=== PATIENT | male | born 1930 | race Caucasian/White ===

== ENCOUNTER 2017-07-15 02:50 | Observation (INO) | payer OTHER ==
[2017-07-15] MEDS ORDERED: NS 500 ML IV ONE ×2 (02:55→05:44)
--- NOTE | 2017-07-15 02:57 | EDPHY ---
H & P HPI/ROS: HPI CHIEF COMPLAINT: Fall, unwitnessed, in bathroom, syncope HISTORY OF PRESENT ILLNESS: This patient 86-year-old male who sustained a fall in his bathroom. This was unwitnessed. EMS reports that they think he was having a nose bleed went to the bathroom to stop his nose bleed and fell. Unwitnessed. EMS reports the daughter then helped him get up and he had 20 seconds pause of unresponsiveness staring off into space the daughter reports to EMS that she thought he was dying. 911 was called. EMS evaluated the patient he has skin tears to both elbows. The patient has no complaints. Past Medical History: Unknown at this time Past Surgical History: Unknown upon arrival Social History: Unknown Family History: Unknown ROS REVIEW OF SYSTEMS: A comprehensive 10 point review of systems is otherwise negative aside from elements mentioned in the history of present illness. Exam Constitutional triage nursing summary reviewed, vital signs reviewed, awake/ alert. Eyes normal conjunctivae and sclera, EOMI, PERRLA. HENT normal inspection, atraumatic, moist mucus membranes, dry blood bilateral nares, neck supple/ no meningismus, no raccoon eyes. Respiratory clear to auscultation bilaterally, normal breath sounds, no respiratory distress, no wheezing. Cardiovascular rate normal, regular rhythm, no murmur, no edema, distal pulses normal. Gastrointestinal soft, non-tender, no rebound, no guarding, normal bowel sounds, no distension, no pulsatile mass. Genitourinary no CVA tenderness. Musculoskeletal no midline vertebral tenderness, full range of motion, no calf swelling, no tenderness of extremities, no meningismus, good pulses, neurovascularly intact. Skin pink, warm, & dry, no rash, skin atraumatic. Neurologic awake, alert and oriented x 3, AAOx3, moves all 4 extremities equally, motor intact, sensory intact, CN II-XII intact, normal cerebellar, normal vision, normal speech. Psychiatric normal mood/affect. Heme/Lymph/Immune no lymphadenopathy. 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 Re-evaluation: 0316AM: Daughter arrived. She tells me that she was called by his as he was sleeping in his recliner and developed a nose bleed. He got up from his recliner to go to the bathroom and fell. Unclear his syncopal episode or not. However the daughter arrived to the house in some mild assisted found him on the ground assisted him into a chair he was sitting in the chair for approximately 5 minutes. And at one point he became unresponsive diaphoretic cool and clammy with his mouth hanging open staring off into space not moving anything. This lasted approximately a minute. 0331 CT scan of the head and neck without IV contrast for trauma The results of the study are negative for acute traumatic injury The study was read by Dr. Raymond Waters. I viewed the images myself on the PACS system. EKG interpretation by me on record in [facility] system. Impression time of EKG 3:43 a.m., sinus rhythm rate of 66 right bundle-branch block present. Otherwise unremarkable EKG. SD interval noted 216. ED x-ray chest two view: Pulmonary nodules present. Emphysematous changes. Otherwise no traumatic injury visualized. 0406AM: Given this patient had a syncopal episode own and unresponsive episode and his initial blood pressure was 70 systolic when he arrived. Feel that it is completely reasonable to admit him for observation today. IV hydration. Distally his acute kidney injury. Unknown baseline creatinine. No significant traumatic injuries on exam. Skin tears. Present. Source: Patient, EMS Constitutional: Initial Vital Signs Temperature (C) 36.4 C 07/15/17 03:04 Heart Rate 77 07/15/17 03:04 Respiratory Rate 18 07/15/17 03:04 Blood Pressure 73/58 L 07/15/17 03:04 O2 Sat (%) 93 07/15/17 03:04 O2 Delivery Mode Room Air Allergies/Adverse Reactions: No Known Allergies Allergy (Unverified 07/15/17 03:47) Home Medications: Medication Instructions Recorded Beclomethasone Qvar 80 [Qvar 80 2 puffs IH DAILY 07/15/17 (*)] Multivitamins [Multivitamin (*)] 1 tab PO DAILY 07/15/17 Oxymorphone HCl 5 mg PO BID@06,12 07/15/17 Oxymorphone HCl 10 mg PO DAILY@18 07/15/17 Medical Decision Making - Data Points Laboratory Results: Laboratory Results 07/15/17 03:05 07/15/17 03:05 Medications Given: Beclomethasone Dipropionate (Qvar 80) 2 puffs IH DAILY [facility] Stop: 01/11/18 09:59 Last Admin: 07/15/17 11:10 Dose: 2 inh Enoxaparin Sodium (Lovenox) 30 mg SC DAILY [facility] Stop: 01/11/18 08:59 Last Admin: 07/15/17 08:54 Dose: 30 mg Magnesium Hydroxide (Milk Of Magnesia) 30 ml PO DAILY PRN; Protocol PRN Reason: Constipation Stop: 01/11/18 13:22 Last Admin: 07/15/17 17:09 Dose: 30 ml Miscellaneous Medication (Oxymorphone Hcl [Oxymorphone Hcl]) 10 mg PO DAILY@18 [facility] Stop: 01/11/18 17:59 Last Admin: 07/15/17 19:18 Dose: Not Given Multivitamins (Tab-A-Francisco) 1 each PO DAILY [facility] Stop: 01/11/18 09:59 Last Admin: 07/15/17 14:27 Dose: 1 each Pantoprazole Sodium (Protonix) 40 mg PO DAILY [facility] Stop: 01/11/18 13:29 Last Admin: 07/15/17 14:27 Dose: 40 mg Polyethylene Glycol (Miralax) 17 gm PO DAILY PRN; Protocol PRN Reason: Constipation, patient prefers Stop: 01/11/18 13:22 Last Admin: 07/15/17 14:27 Dose: 17 gm Discontinued Medications Sodium Chloride (Ns) 500 mls @ 1,000 mls/hr IV EDNOW ONE PRN Reason: Protocol Stop: 07/15/17 03:24 Last Admin: 07/15/17 03:07 Dose: 500 mls Sodium Chloride (Ns) 500 mls @ 0 mls/hr IV ONCE ONE PRN Reason: Wide Open Stop: 07/15/17 05:45 Last Admin: 07/15/17 04:00 Dose: 500 mls Departure - Departure Disposition: [facility] Inpatient Acute Clinical Impression: Dehydration, CAMERON (acute kidney injury), Unresponsive episode, Transient hypotension, Skin tear Syncope Qualifiers: Syncope type: unspecified Qualified Code(s): R55 - Syncope and collapse Condition: Fair
[2017-07-15 03:09] LABS: % IMMATURE GRANULYOCYTES 0.5 % (0.0-1.1); ABSOLUTE IMMATURE GRANULOCYTES 0.05 10^3/uL (0.00-0.10); ADD DIFF? NO; ADD MORPH? NO; ADD SCAN? NO; ATYPICAL LYMPHOCYTE FLAG 20 (0-99); FRAGMENT RBC FLAG 0 (0-99); HEMATOCRIT 34.4 % (40.0-51.0); HEMOGLOBIN 11.2 g/dL (13.7-17.5); LEFT SHIFT FLG 0 (0-99); LIPEMIA HEMOLYSIS FLAG 80 (0-99); MEAN CELL HEMOGLOBIN CONCENTR. 32.6 g/dL (32.4-36.7); MEAN CELL VOLUME 98.3 fL (81.5-99.8); MEAN PLATELET VOLUME 11.2 fL (8.7-11.7); PLATELET CLUMPS FLAG 40 (0-99); PLATELET COUNT 125 10^3/uL (150-400); RED CELL DISTRIBUTION WIDTH 13.2 % (11.5-15.2)
[2017-07-15 03:18] LABS: INR 1.4 (0.83-1.16); PROTIME(PATIENT) 17.1 SEC (12.0-15.0)
[2017-07-15 03:19] LABS: APTT 27.5 SEC (23.0-38.0)
--- NOTE | 2017-07-15 03:25 | CPEKG ---
Heart Rate: 67 RR Interval: 896 P-R Interval: 188 QRSD Interval: 120 QT Interval: 432 QTC Interval: 456 P [place]: 86 QRS [place]: -41 T Wave [place]: 1 EKG Severity - ABNORMAL ECG - EKG Impression: SINUS RHYTHM EKG Impression: IVCD, CONSIDER ATYPICAL RBBB Electronically Signed By: Good Pierson 15-Jul-2017 07:45:12
[2017-07-15 03:30] LABS: ALANINE AMINOTRANSFERASE 28 IU/L (21-72); ALBUMIN 3.9 g/dL (3.5-5.0); ALKALINE PHOSPHATASE 90 IU/L (38-126); ANION GAP 19 mEq/L (8-16); ASPARTATE AMINOTRANSFERASE 26 IU/L (17-59); BILIRUBIN,TOTAL 0.5 mg/dL (0.1-1.4); BILIRUBIN-CONJUGATED 0.4 mg/dL (0.0-0.5); BILIRUBIN-UNCONJUGATED 0.1 mg/dL (0.0-1.1); CALCIUM 9.4 mg/dL (8.5-10.4); CARBON DIOXIDE 22 mEq/l (22-31); CHLORIDE 100 mEq/L (97-110); CREATININE 2.7 mg/dL (0.7-1.3); GLOMERULAR FILTRATION RATE 23; GLUCOSE 148 mg/dL (70-100); MAGNESIUM 2.6 mg/dL (1.6-2.3); POTASSIUM 5.1 mEq/L (3.5-5.2); SODIUM 141 mEq/L (134-144); TOTAL PROTEIN 7.3 g/dL (6.3-8.2)
[2017-07-15 03:39] LABS: CREATINE KINASE-MB FRACTION 1.77 ng/mL (0.00-3.19); TROPONIN I 0.017 ng/mL (0.000-0.034)
--- NOTE | 2017-07-15 03:45 | CPEKG ---
Heart Rate: 66 RR Interval: 909 P-R Interval: 216 QRSD Interval: 122 QT Interval: 440 QTC Interval: 461 P Martin: 31 QRS Martin: -46 T Wave Martin: 7 EKG Severity - ABNORMAL ECG - EKG Impression: SINUS RHYTHM EKG Impression: RIGHT BUNDLE BRANCH BLOCK Electronically Signed By: Good Pierson 15-Jul-2017 07:45:12
[2017-07-15] MEDS ORDERED: ACETAMINOPHEN 325 MG TAB PO PRN (04:57)
[2017-07-15] MEDS ORDERED: ONDANSETRON 4 MG/2 ML VIAL IVP PRN (04:57)
[2017-07-15] MEDS ORDERED: ONDANSETRON DISINTEGRATING 4 MG TAB PO PRN (04:57)
--- NOTE | 2017-07-15 05:06 | PDGENHP ---
History and Physical - Chief Complaint Unresponsiveness - History of Present Illness 86 yo M w/ hx of CKD, bladder CA, prostate CA, and AAA s/p repair presents after episode of unresponsiveness at home. History obtained from patient and adult children. He had a nosebleed on the night prior to admission, which is unusual for him. He got up to go to the bathroom and fell. He was found on the ground unable to get up. Family moved him to a chair where they had difficulty controlling his persistent nosebleed. After a few minutes of sitting on the chair, he had a 1 minute long episode of unresponsiveness. His daughter states he became cold, clammy, and unresponsive with a distant stare. He came back to without significant confusion but did not have memory of the event. His daughter describes significant deconditioning. He cannot stand for more than a few minutes at a time at baseline. He lives with his elderly who was significant short term memory problems. His only medication is oxymorphone, which his PCP has been trying to PCP per daughter's report. During my evaluation patient is asymptomatic, A&Ox3, and interacting appropriately. History Information - Allergies/Home Medication List Allergies/Adverse Reactions: No Known Allergies Allergy (Unverified 07/15/17 03:47) Home Medications: Oxymorphone HCl 07/15/17 [Last Taken Unknown] I have personally reviewed and updated: family history, medical history - Past Medical History Additional medical history: AAA s/p repair. Bladder cancer. Prostate cancer. CKD - Surgical History Additional surgical history: AAA repair in [place] 2009 - Family History Additional family history: Dementia, depression - Social History Smoking Status: Former smoker Alcohol Use: None Drug Use: None Review of Systems ROS: 10pt was reviewed & negative except for what was stated in HPI & below Physical Exam Temp Pulse Resp BP Pulse Ox 36.4 C 77 18 95/49 L 93 07/15/17 03:04 07/15/17 03:04 07/15/17 03:04 07/15/17 03:19 07/15/17 03:04 Constitutional: no apparent distress, chronically ill appearing Eyes: PERRL, EOMI Ears, Nose, Mouth, Throat: no oral mucosal ulcers, dry mucous membranes Cardiovascular: regular rate and rhythym, no murmur, rub, or gallop Respiratory: no respiratory distress, clear to auscultation Gastrointestinal: normoactive bowel sounds, soft, non-tender abdomen Skin: warm, no rashes or abrasions Musculoskeletal: no muscle tenderness, no joint effusions Neurologic: AAOx3, CN II-XII Intact Psychiatric: interacting appropriately, not anxious Lab Data & Imaging Review 07/15/17 03:05 07/15/17 03:05 WBC 9.56 10^3/uL (3.80-9.50) H 07/15/17 03:05 RBC 3.50 10^6/uL (4.40-6.38) L 07/15/17 03:05 Hgb 11.2 g/dL (13.7-17.5) L 07/15/17 03:05 Hct 34.4 % (40.0-51.0) L 07/15/17 03:05 MCV 98.3 fL (81.5-99.8) 07/15/17 03:05 MCH 32.0 pg (27.9-34.1) 07/15/17 03:05 MCHC 32.6 g/dL (32.4-36.7) 07/15/17 03:05 RDW 13.2 % (11.5-15.2) 07/15/17 03:05 Plt Count 125 10^3/uL (150-400) L 07/15/17 03:05 MPV 11.2 fL (8.7-11.7) 07/15/17 03:05 Neut % (Auto) 50.7 % (39.3-74.2) 07/15/17 03:05 Lymph % (Auto) 35.9 % (15.0-45.0) 07/15/17 03:05 Johnson % (Auto) 10.7 % (4.5-13.0) 07/15/17 03:05 Eos % (Auto) 1.7 % (0.6-7.6) 07/15/17 03:05 Baso % (Auto) 0.5 % (0.3-1.7) 07/15/17 03:05 Nucleat RBC Rel Count 0.0 % (0.0-0.2) 07/15/17 03:05 Absolute Neuts (auto) 4.85 10^3/uL (1.70-6.50) 07/15/17 03:05 Absolute Lymphs (auto) 3.43 10^3/uL (1.00-3.00) H 07/15/17 03:05 Absolute Monos (auto) 1.02 10^3/uL (0.30-0.80) H 07/15/17 03:05 Absolute Eos (auto) 0.16 10^3/uL (0.03-0.40) 07/15/17 03:05 Absolute Basos (auto) 0.05 10^3/uL (0.02-0.10) 07/15/17 03:05 Absolute Nucleated RBC 0.00 10^3/uL (0-0.01) 07/15/17 03:05 Immature Gran % 0.5 % (0.0-1.1) 07/15/17 03:05 Immature Gran # 0.05 10^3/uL (0.00-0.10) 07/15/17 03:05 PT 17.1 SEC (12.0-15.0) H 07/15/17 03:05 INR 1.40 (0.83-1.16) H 07/15/17 03:05 APTT 27.5 SEC (23.0-38.0) 07/15/17 03:05 Sodium 141 mEq/L (134-144) 07/15/17 03:05 Potassium 5.1 mEq/L (3.5-5.2) 07/15/17 03:05 Chloride 100 mEq/L (97-110) 07/15/17 03:05 Carbon Dioxide 22 mEq/l (22-31) 07/15/17 03:05 Anion Gap 19 mEq/L (8-16) H 07/15/17 03:05 BUN 65 mg/dL (7-23) H 07/15/17 03:05 Creatinine 2.7 mg/dL (0.7-1.3) H 07/15/17 03:05 Estimated GFR 23 07/15/17 03:05 Glucose 148 mg/dL (70-100) H 07/15/17 03:05 Calcium 9.4 mg/dL (8.5-10.4) 07/15/17 03:05 Magnesium 2.6 mg/dL (1.6-2.3) H 07/15/17 03:05 Total Bilirubin 0.5 mg/dL (0.1-1.4) 07/15/17 03:05 Conjugated Bilirubin 0.4 mg/dL (0.0-0.5) 07/15/17 03:05 Unconjugated Bilirubin 0.1 mg/dL (0.0-1.1) 07/15/17 03:05 AST 26 IU/L (17-59) 07/15/17 03:05 ALT 28 IU/L (21-72) 07/15/17 03:05 Alkaline Phosphatase 90 IU/L (38-126) 07/15/17 03:05 Creatine Kinase 38 IU/L (0-224) 07/15/17 03:05 CK-MB (CK-2) Fraction 1.77 ng/mL (0.00-3.19) 07/15/17 03:05 Troponin I 0.017 ng/mL (0.000-0.034) 07/15/17 03:05 Total Protein 7.3 g/dL (6.3-8.2) 07/15/17 03:05 Albumin 3.9 g/dL (3.5-5.0) 07/15/17 03:05 Visualized and Interpreted Chest x-ray results: Yes Chest X-Ray results: no infiltrate Visualized and Interpreted EKG results: Yes EKG Interpretation: Positive for: other (Interventricular conduction delay) Assessment & Plan Assessment: 86 yo M w/ CKD, history or bladder and prostate CA, and deconditioning presents after episode of unresponsiveness. Plan: 1. Syncope - Unclear if patient truly lost consciousness, difficult to ascertain from history. Per family, patient tried to get up to the bathroom during a nosebleed and was found down but responsive. Then, a few minutes after being moved to chair had a 1 minuted episode of unresponsiveness and looked pale and diaphoretic. This appearance sounds consistent with vasovagal episode in setting of ongoing nosebleed. I suspect dehydration and deconditioning are also playing a role. No chest pain and troponin/ECG negative for ischemia. Not hypoxic or tachycardic so doubt PE. CT head without acute abnormality and has non-focal neurologic exam. - Admit for observation - Monitor on telemetry - IVF, check orthostatic VS 2. CAMERON/CKD - Patient reports having been told in the past about kidney disease and possible need for dialysis, so some component of elevated creatinine is likely chronic. Pre-renal azotemia possibly contributing noting above and low/ normal BP. - IVF, monitor BMP 3. Back pain - Symptoms sound c/w spinal stenosis. On oxymorphone chronically for this. 4. Hx of AAA s/p repair 5. Hx of bladder, prostate CA Diet - Regular Code - DNR Ppx - LMWH, low dose Dispo - Admit to observation, anticipate <2 MN
[2017-07-15] MEDS: ENOXAPARIN 30 MG/0.3 ML SYR SC SCH (08:54)
--- NOTE | 2017-07-15 10:03 | WOCRNPDOC ---
WOCRN Advanced Assessment Note - Skin Integrity Problem, Advanced Assess Coccyx Pressure Injury Dressing Type: Open to Air Exudate Amount: None Wound Bed Color: Purple, Red Site Measurement - Head-to-Toe Length X Width X Depth (cm): 2x2x0 Pressure Injury Stage: Deep Tissue Injury (DTI) Pressure Injury Present on Admit: Yes Pulse Location & Description: The non blanching purple area is on the patient's left coccyx and blends with other purple/red tissue that is mookie anal (which is blanching). Not a classical presentation, but coccyx is plapable under skin in that area. Patient does not endorse falling on the area, nor any tenderness to the area. Please keep patient brief free for 12 hours per day. Wound care will round again later this week/early next week to confirm staging and check wound progress.
[2017-07-15] MEDS: BECLOMETHASONE QVAR 80 MDI IH SCH (11:10)
[2017-07-15] MEDS ORDERED: BISACODYL 10 MG SUPP PR PRN (13:23)
[2017-07-15] MEDS ORDERED: POLYETHYLENE GLYCOL 3350 17 GM PKT PO PRN (13:23)
[2017-07-15] MEDS ORDERED: LACTULOSE 20 GM/30 ML UDCUP PO PRN (13:23)
--- NOTE | 2017-07-15 13:39 | HOSPPROG ---
Hospitalist Progress Note Assessment/Plan: 86-year-old male admitted after a possible fall or near syncopal episode. I spoke with the son today who understands that he has chronic pain chronic kidney disease with a creatinine of approximately 3.0 at baseline, and is status post 3 surgeries for bladder cancer. The son's impression is that he is progressively weaker [place] and wants to go home. The patient is DNR and the son Mor is his POA. Mor reports that he has been working closely with his physician at [facility], Dr. Blum, and they are aware of his debility but the patient wants to go home. Mor indicates that he would not pursue a further cardiac evaluation as it would not be fruitful, And the patient does not desire further workup. - Acute syncope, probable vasovagal. Monitor here on the unit has been stable in sinus rhythm without significant ectopy. - Chronic pain syndrome on chronic opioid medication. I have restarted the gentleman's baseline opioids. Cyst Mor his son reports that [facility] been trying to decrease this but it is been unsuccessful. 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 This is a remote problem and felt to be resolved now. 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 - Chronic kidney disease with a baseline creatinine of approximately 3.0. Apparently by history from Mor this has been increasing recently. - Acute on chronic weakness. Disposition: The patient desires in the son Mor desires that the patient return home. Will review matters with PT OT and case management. Objective: Vital Signs Temp Pulse Resp BP Pulse Ox 36.6 C 69 21 H 111/53 L 95 07/15/17 08:00 07/15/17 11:35 07/15/17 11:35 07/15/17 11:35 07/15/17 11:35 07/14/17 07/15/17 07/16/17 05:59 05:59 05:59 Intake Total 1000 300 Balance 1000 300 PT 17.1 SEC (12.0-15.0) H 07/15/17 03:05 INR 1.40 (0.83-1.16) H 07/15/17 03:05 ICD10 Worksheet Patient Problems: Problems Problem Status Onset CAMERON (acute kidney injury) Acute Dehydration Acute Skin tear Acute Syncope Acute Transient hypotension Acute Unresponsive episode Acute
[2017-07-15] MEDS: MULTIVITAMINS 1 EACH TAB PO SCH (14:27)
[2017-07-15] MEDS: PANTOPRAZOLE SODIUM 40 MG TAB PO SCH (14:27)
[2017-07-15] MEDS: MAGNESIUM HYDROXIDE 30 ML UDCUP PO PRN (17:09)
[2017-07-15] MEDS ORDERED: OXYMORPHONE HCL 10 MG PO SCH (18:00)
[2017-07-15] MEDS ORDERED: oxyCODONE IR 5 MG TAB PO PRN (21:54)
[2017-07-15] MEDS: SENNOSIDES/DOCUSATE SODIUM TAB PO SCH (23:42)
[2017-07-16] MEDS ORDERED: LIDOCAINE 5% 1 EA PATCH TD SCH (03:10)
[2017-07-16] MEDS ORDERED: LIDOCAINE 5% 1 EA PATCH TD ONE ×2 (03:28→03:31)
[2017-07-16] MEDS: PANTOPRAZOLE SODIUM 40 MG TAB PO SCH (07:27)
[2017-07-16] MEDS: MULTIVITAMINS 1 EACH TAB PO SCH (07:27)
[2017-07-16] MEDS: SENNOSIDES/DOCUSATE SODIUM TAB PO SCH (07:28)
[2017-07-16] MEDS: ENOXAPARIN 30 MG/0.3 ML SYR SC SCH (07:29)
[2017-07-16] MEDS: MAGNESIUM HYDROXIDE 30 ML UDCUP PO PRN (07:41)
[2017-07-16] MEDS: BECLOMETHASONE QVAR 80 MDI IH SCH (09:37)
[2017-07-16] MEDS ORDERED: ZOLPIDEM TARTRATE 5 MG TAB PO PRN (09:39)
[2017-07-16] MEDS: OXYMORPHONE HCL 5 MG PO SCH ×2 (09:48→13:38)
[2017-07-16 11:52] VITALS: BP 151/67; PULSE 64; RESP 16; TEMP 98.2; O2SAT 94
[2017-07-16] MEDS ORDERED: PATCH REMOVAL 1 EA PATCH TD SCH (15:00)
--- NOTE | 2017-07-16 16:02 | GDS ---
[f rep st] DISCHARGE SUMMARY NEW AND ACUTE DIAGNOSES ON THIS ADMISSION: 1. Syncope or presyncopal episode. No evidence of a cardiac event, and probably vasovagal syncope. 2. Hypertension, a new diagnosis for him. 3. Acute kidney injury on chronic kidney disease with a discharge creatinine of 2.7, and appears to be at baseline. 4. Back pain of a chronic nature, with an acute exacerbation in pain. 5. Elevated INR of uncertain etiology. 6. DNR status. CHRONIC DIAGNOSIS: History of bladder carcinoma, status post treatment. CONSULTATIONS: None. PROCEDURES: None. HOSPITAL COURSE: This is an 86-year-old gentleman, who suffered a nose bleed on the evening of admis faith. Because he was up and managing his nose bleed, he became slightly weak, sat down, and then maureen arently had approximately a 1 minute episode of where he was unresponsive. The daughter , stated he was cold and clammy and unresponsive. He recovered without significant confusion, but did not have memory of the event. He was admitted and found to have a symmetric neurologic exam without signs of an acute vascular event. Cardiovascular status was normal. His blood pressure was normal, though initially low, he received some fluid in the emergency department, and recovered his blood pre ssure nicely, and then towards the end of his hospitalization became mildly hypertensive. Laboratory evaluation was revealing only of an elevated INR of uncertain etiology, with normal liver functions, and mild anemia with a hemoglobin 11.2, and a white count of 9.5. He is known to have chronic kidne y disease and had a creatinine of 2.7. The gentleman participated with PT and OT successfully, and felt strongly that he was [facility], and he felt strongly about returning home. I discussed the fact that his blood pressure was e levated, and in light of his kidney disease, and a history of an abdominal aortic aneurysm, this shou ld be treated, thus a new medication will be Norvasc for this gentleman, TORSTEN and ARB inhibitors will be avoided because of his kidney disease. This medication is started upon discharge. I have also di scussed this matter with his son. DISCHARGE MEDICATIONS: New medication is Norvasc 2.5 mg p.o. daily #30, and lidocaine patch 5% to be applied to his lower back. His regular medications are QVAR 80 mcg 2 puffs inhalations daily, oxymo rphone 5 mg p.o. b.i.d., and 10 mg p.o. daily at 6 p.m., multivitamin daily. Stopping medications ar e none. PLAN: The gentleman will be returning home, where he has the assistance of his daughter, and home ca re previously ordered. His also assists in his care. I have encouraged him to follow up with h is physician, Dr. Bryan at [facility], within the next 1-2 weeks to recheck his blood pressure. Chec k on his kidney function. It also remains unexplained as to why his INR is elevated. Discharge matters to be addressed at his first follow up: A recheck of his blood pressure. Check of renal function. Evaluation and questioning as to whether there has been any further syncopal episod es, and a recheck of his INR, and investigation if necessary into why this is elevated. Laboratories of note at the time of discharge: WBC 9500, hemoglobin 11. INR 1.4. Chemistry panel s hows a BUN of 65, a creatinine of 2.7, a magnesium of 2.6. Albumin 3.9. Time this discharge required 45 minutes, greater than 50% to dependency counselor, coordinate his care, and establ isamar and explain his new medications. /[id number]/MODL
== END 2017-07-16 16:24 | disposition home or self-care (01) ==
LOC: EDUNIT# → INTOOBSV 04:24 → F3N 06:11
PROVIDERS: ADMIT Student in an Organized Health Care Education/Training Program; ATTEND Internal Medicine Pulmonary Disease
DX: R55 Syncope and collapse (principal); I10 Essential (primary) hypertension; R04.0 Epistaxis; E86.0 Dehydration; N17.9 Acute kidney failure, unspecified; N18.9 Chronic kidney disease, unspecified; S50.312A Abrasion of left elbow, initial encounter; S50.311A Abrasion of right elbow, initial encounter; G89.4 Chronic pain syndrome; M50.31 Other cervical disc degeneration, high cervical region; M50.321 Other cervical disc degeneration at C4-C5 level; M50.322 Other cervical disc degeneration at C5-C6 level; M50.323 Other cervical disc degeneration at C6-C7 level; W19.XXXA Unspecified fall, initial encounter; Y92.002 Bathroom of unspecified non-institutional (private) residence as the place of occurrence of the external cause; Z85.51 Personal history of malignant neoplasm of bladder; Z85.46 Personal history of malignant neoplasm of prostate; Z79.891 Long term (current) use of opiate analgesic; Z66 Do not resuscitate
CPT/HCPCS: 70450; 71010; 72125; 92507; 92523; 93005; 97161; 97165; 99285; G0378; J1650